=== PATIENT | male | born 1950 | race Caucasian/White ===

== ENCOUNTER 2023-04-30 10:21 | Emergency (ER) | payer MEDICARE, OTHER ==
[~2023-04-30] VITALS: Ht 177.8 cm; Wt 63.5 kg
--- NOTE | 2023-04-30 10:23 | NUR ---
Dr [email or web address], medical screening exam in progress
[2023-04-30] MEDS ORDERED: CARV6.25 PO (10:35)
[2023-04-30] MEDS ORDERED: APIX5TAB PO (10:35)
[2023-04-30] MEDS ORDERED: INSU100I26 SQ (10:35)
[2023-04-30] MEDS ORDERED: LIPA1CAP15 PO (10:35)
[2023-04-30] MEDS ORDERED: ACETAMINOPHEN 325 MG TABLET PO ONE (10:45)
[2023-04-30] MEDS ORDERED: ACETAMINOPHEN 325 MG TABLET ONE (10:55)
[2023-04-30 10:59] LABS: HEMATOCRIT 35.5 % (36.7-47.1); MEAN CORPUSCULAR HEMOGLOBIN 29.7 uug (23.8-33.4); MEAN CORPUSCULAR VOLUME 90.2 fL (73.0-96.2); PLATELET COUNT (AUTO) 130 K/uL (152-348)
[2023-04-30 11:19] LABS: BILIRUBIN,TOTAL 0.3 mg/dL (0.2-1.0); TOTAL PROTEIN, SERUM 6.5 g/dL (6.4-8.2)
--- NOTE | 2023-04-30 11:26 | NUR ---
Patient is resting comfortably on gurney with eyes closed, NAD.
[2023-04-30 13:05] VITALS: BP 115/60; TEMP 97.9; O2SAT 98
--- NOTE | 2023-04-30 13:18 | NUR ---
Port A Cath access removed and small dressing apploied, no bleeding or discomfort noted.
--- NOTE | 2023-04-30 13:20 | NUR ---
Patient discharged to home in stable condition. Written and verbal after care instructions given. Patient verbalizes understanding of instructions. Stressed follow up or return to ER for worsening s/s. Pt walked out of ER accompained by family.
== END 2023-04-30 13:20 | disposition home or self-care (01) ==
LOC: ER 10:34
DX: R07.89 Other chest pain (principal); I25.2 Old myocardial infarction; E11.9 Type 2 diabetes mellitus without complications; I25.10 Atherosclerotic heart disease of native coronary artery without angina pectoris; Z79.4 Long term (current) use of insulin; Z79.899 Other long term (current) drug therapy
CPT/HCPCS: 36415; 71045; 84484; 85025; A4663

== ENCOUNTER 2023-07-21 18:55 | Inpatient (IN) | payer MEDICARE, OTHER ==
[~2023-07-21] VITALS: Ht 177.8 cm; Wt 62.1 kg
[~2023-07-21 18:55] MED LIST: APIX5TAB PO; CARV6.25 PO; INSU100I26 SQ; LIPA1CAP15 PO
[2023-07-21] MEDS ORDERED: PANTOPRAZOLE SODIUM IV 80 MG in IV DEXTROSE 5% 500 ML IV ONE (19:30)
[2023-07-21] MEDS ORDERED: IV NORMAL SALINE 500 ML BAG IV ONE (19:30)
[2023-07-21] MEDS ORDERED: MORPHINE SULFATE 2 MG/1 ML DISP.SYRIN IV ONE (19:30)
[2023-07-21] MEDS ORDERED: PANTOPRAZOLE SODIUM IV 80 MG in IV DEXTROSE 5% 100 ML IV ONE (19:30)
[2023-07-21] MEDS ORDERED: ONDANSETRON 4 MG/2 ML VIAL IV ONE (19:30)
[2023-07-21] MEDS ORDERED: PANTOPRAZOLE SODIUM 40 MG VIAL ONE ×2 (19:32→19:33)
[2023-07-21] MEDS ORDERED: ONDANSETRON 4 MG/2 ML VIAL ONE (19:32)
[2023-07-21] MEDS ORDERED: MORPHINE SULFATE 2 MG/1 ML DISP.SYRIN ONE (19:32)
[2023-07-21 19:36] LABS: BASOPHILS % (AUTO) 0.3 % (0.0-2.0); EOSINOPHILS % (AUTO) 0.3 % (0.0-7.0); HEMATOCRIT 27.1 % (36.7-47.1); LYMPHOCYTES # (AUTO) 1.1 K/uL (0.8-4.8); LYMPHOCYTES % (AUTO) 9.6 % (20.5-51.5); MEAN CORPUSCULAR HEMOGLOBIN 28.4 uug (23.8-33.4); MEAN CORPUSCULAR HGB CONC 33 g/dL (32.5-36.3); MEAN CORPUSCULAR VOLUME 85.5 fL (73.0-96.2); MONOCYTES # (AUTO) 0.5 K/uL (0.1-1.30); MONOCYTES % (AUTO) 4.5 % (0.0-11.0); NEUTROPHILS # (AUTO) 9.9 K/uL (1.8-8.9); NEUTROPHILS % (AUTO) 85.3 % (38.5-71.5); PLATELET COUNT (AUTO) 297 K/uL (152-348); RED BLOOD CELL COUNT(AUTO) 3.17 MIL/uL (4.06-5.63); RED CELL DISTRIBUTION WIDTH 19.8 % (12.1-16.2); WHITE BLOOD COUNT (AUTO) 11.6 K/uL (3.6-10.2)
[2023-07-21 19:46] LABS: DIFFERENTIAL COMMENT 1
[2023-07-21 19:58] LABS: CALCIUM 8.5 mg/dL (8.5-10.1); CREATININE 1.3 mg/dL (0.6-1.3); POTASSIUM 4.5 mmol/L (3.5-5.1)
[2023-07-21 20:11] LABS: ALBUMIN 2.8 g/dL (3.4-5.0); BILIRUBIN,DIRECT 0.2 mg/dL (0.0-0.2); BILIRUBIN,TOTAL 0.5 mg/dL (0.2-1.0); TOTAL PROTEIN, SERUM 5.9 g/dL (6.4-8.2)
[2023-07-21] MEDS ORDERED: MORPHINE SULFATE 4 MG/1 ML DISP.SYRIN IV ONE (20:15)
[2023-07-21] MEDS ORDERED: CARV12.52 PO (20:17)
[2023-07-21] MEDS ORDERED: MORPHINE SULFATE 4 MG/1 ML DISP.SYRIN ONE (20:20)
[2023-07-21] MEDS ORDERED: HYDROMORPHONE 1 MG/1 ML DISP.SYRIN ONE (20:22)
[2023-07-21] MEDS ORDERED: HYDROMORPHONE 1 MG/1 ML DISP.SYRIN IV ONE (20:30)
[2023-07-21] MEDS ORDERED: IV NORMAL SALINE 1000 ML BAG IV ONE (21:15)
[2023-07-21] MEDS ORDERED: ONDANSETRON ODT 4 MG TAB.RAPDIS SL ONE (22:30)
[2023-07-21] MEDS ORDERED: MECLIZINE HCL 25 MG TABLET PO ONE (22:30)
[2023-07-21] MEDS ORDERED: MECLIZINE HCL 25 MG TABLET ONE (22:41)
[2023-07-21] MEDS ORDERED: ONDANSETRON ODT 4 MG TAB.RAPDIS ONE (22:41)
[2023-07-22] VITALS (8 sets, daily range): BP systolic 133–161; BP diastolic 70–80; TEMP 98–98.7; O2SAT 96–98
[2023-07-22] MEDS ORDERED: DEXTROSE 50% 50 ML DISP.SYRIN IV PRN (01:15)
[2023-07-22] MEDS ORDERED: INSULIN REGULAR, HUMAN 300 UNIT/3 ML VIAL SQ PRN (01:15)
[2023-07-22] MEDS ORDERED: ACETAMINOPHEN 325 MG TABLET PO PRN (01:15)
[2023-07-22] MEDS ORDERED: REMEDY ESSENTIAL ZINC PASTE 113 GM TP PRN (01:15)
[2023-07-22] MEDS ORDERED: ZOLPIDEM 5 MG TABLET PO PRN (01:15)
[2023-07-22] MEDS ORDERED: MAGNESIUM HYDROXIDE 30 ML LIQUID UDC PO PRN (01:15)
[2023-07-22] MEDS ORDERED: HYDROMORPHONE 2 MG/1 ML DISP.SYRIN IV ONE (02:30)
[2023-07-22] MEDS: ONDANSETRON 4 MG/2 ML VIAL IV PRN ×2 (02:49→10:38)
[2023-07-22 06:30] LABS: BASOPHILS % (AUTO) 0.4 % (0.0-2.0); DIFFERENTIAL COMMENT 0; EOSINOPHILS % (AUTO) 0.2 % (0.0-7.0); LYMPHOCYTES # (AUTO) 1.4 K/uL (0.8-4.8); LYMPHOCYTES % (AUTO) 16.8 % (20.5-51.5); MEAN CORPUSCULAR HEMOGLOBIN 28.7 uug (23.8-33.4); MEAN CORPUSCULAR HGB CONC 33 g/dL (32.5-36.3); MEAN CORPUSCULAR VOLUME 86.3 fL (73.0-96.2); MONOCYTES # (AUTO) 0.6 K/uL (0.1-1.30); MONOCYTES % (AUTO) 6.9 % (0.0-11.0); NEUTROPHILS # (AUTO) 6.2 K/uL (1.8-8.9); NEUTROPHILS % (AUTO) 75.7 % (38.5-71.5); PLATELET COUNT (AUTO) 219 K/uL (152-348); RED CELL DISTRIBUTION WIDTH 19.7 % (12.1-16.2); WHITE BLOOD COUNT (AUTO) 8.2 K/uL (3.6-10.2)
[2023-07-22 06:32] LABS: CALCIUM 6.9 mg/dL (8.5-10.1); CARBON DIOXIDE 20 mmol/L (21-32); CHLORIDE 108 mmol/L (98-107); CREATININE 0.9 mg/dL (0.6-1.3); GLUCOSE 153 mg/dL (74-106); MAGNESIUM 1.4 mg/dL (1.8-2.4); POTASSIUM 3.8 mmol/L (3.5-5.1); SODIUM SERUM 138 mmol/L (136-145); UREA NITROGEN, BLOOD 20 mg/dL (7-18)
[2023-07-22] MEDS: BLOOD SUGAR DIAGNOSTIC 1 EACH STRIP VI SCH ×2 (06:33→11:42)
[2023-07-22 07:15] LABS: RED BLOOD CELL COUNT(AUTO) 2.36 MIL/uL (4.06-5.63)
[2023-07-22 07:16] LABS: HEMATOCRIT 20.4 % (36.7-47.1); HEMOGLOBIN 6.8 g/dL (12.5-16.3)
[2023-07-22] MEDS ORDERED: CARVEDILOL 12.5 MG TABLET PO SCH (09:00)
[2023-07-22] MEDS ORDERED: PANTOPRAZOLE SODIUM 40 MG VIAL IV SCH (09:00)
[2023-07-22 09:39] LABS: LYMPHOCYTES % (MANUAL) 19 % (20-40); MONOCYTES % (MANUAL) 8 % (2-10); NEUTROPHILS % (MANUAL) 73 % (42-75)
[2023-07-22 09:40] LABS: PLATELET ESTIMATE ADEQUATE
[2023-07-22 09:41] LABS: ANISOCYTOSIS 2+
[2023-07-22] MEDS: HYDROMORPHONE 1 MG/1 ML DISP.SYRIN IV PRN ×2 (10:39→14:54)
[2023-07-22] MEDS: MAGNESIUM SULFATE/D5W 100 ML IV SCH ×4 (11:10→14:22)
[2023-07-22] MEDS ORDERED: FERR-56 PO (13:36)
[2023-07-22] MEDS ORDERED: PANT40TA49 PO (13:37)
[2023-07-22] MEDS ORDERED: GABA-532 PO (13:39)
== END 2023-07-22 15:50 | disposition designated cancer center or children's hospital (05) | DRG 378 ==
LOC: ER 18:59 → TELE3 07-22 00:24
PROVIDERS: ADMIT Nurse Practitioner Acute Care; ATTEND Student in an Organized Health Care Education/Training Program
PROC: 30243N1 Transfusion of Nonautologous Red Blood Cells into Central Vein, Percutaneous Approach (ICD-10-PCS; principal; 2023-07-22)
DX: K92.2 Gastrointestinal hemorrhage, unspecified (principal); D62 Acute posthemorrhagic anemia; C25.9 Malignant neoplasm of pancreas, unspecified; C78.7 Secondary malignant neoplasm of liver and intrahepatic bile duct; E44.0 Moderate protein-calorie malnutrition; E87.1 Hypo-osmolality and hyponatremia; I25.2 Old myocardial infarction; Z79.4 Long term (current) use of insulin; Z79.01 Long term (current) use of anticoagulants; E11.9 Type 2 diabetes mellitus without complications; Z95.5 Presence of coronary angioplasty implant and graft; R79.89 Other specified abnormal findings of blood chemistry; Z79.899 Other long term (current) drug therapy
CPT/HCPCS: 36415; 70030-TC; 71045; 83690; 83735; 85025; 85730; 86850; 86900; 86901; 86920; 93005; A4606; A4663; C9113; G0378; J1170; J1815; J2270; J2405; J3475; J7040; J7060; J8597; P9016; Q0162